=== PATIENT | female | born 1990 ===

== ENCOUNTER → 2024-10-10 | Day surgery (SDC) | payer OTHER ==
[2024-10-08 14:40] VITALS: BMI 26.6
== END ==
LOC: CSHSDC 07:30
PROVIDERS: ATTEND Otolaryngology Plastic Surgery within the Head & Neck
PROC: 09TL8ZZ Resection of Nasal Turbinate, Via Natural or Artificial Opening Endoscopic (ICD-10-PCS; principal; 2024-10-10)
PROC: 09BU8ZZ Excision of Right Ethmoid Sinus, Via Natural or Artificial Opening Endoscopic (ICD-10-PCS; principal; 2024-10-10)
PROC: 09BQ8ZZ Excision of Right Maxillary Sinus, Via Natural or Artificial Opening Endoscopic (ICD-10-PCS; principal; 2024-10-10)
DX: J34.3 Hypertrophy of nasal turbinates (principal); J32.8 Other chronic sinusitis; J34.89 Other specified disorders of nose and nasal sinuses; J33.9 Nasal polyp, unspecified; Z87.59 Personal history of other complications of pregnancy, childbirth and the puerperium; Z87.891 Personal history of nicotine dependence; Z79.899 Other long term (current) drug therapy; Z98.890 Other specified postprocedural states